=== PATIENT | female | born 1975 | race Caucasian/White ===

== ENCOUNTER 2016-07-22 09:12 | Emergency (ER) | payer BC ==
[~2016-07-22] VITALS: Ht 160 cm; Wt 84.1 kg
[~2016-07-22 09:12] MED LIST: ADVIL,NUPRIN,M200 MG PO; FLEXERIL5 MG PO; HYDROCODON-ACE1 EAC7 PO; LEVAQUIN750 MG PO; NOHOMEMEDS; ROBITUSSIN DM118 ML PO; TRAMADOL HCL50 MG PO
[2016-07-22] MEDS ORDERED: CLINDAMYCIN HC150 MG PO (10:03)
[2016-07-22] MEDS ORDERED: NAPROXEN500 MG PO (10:03)
[2016-07-22 10:12] VITALS: BP 119/78
== END 2016-07-22 10:50 | disposition home or self-care (01) ==
LOC: EME 09:12
PROC: 0C95XZZ Drainage of Upper Gingiva, External Approach (ICD-10-PCS; principal; 2016-07-22)
DX: K04.7 Periapical abscess without sinus (principal); F17.200 Nicotine dependence, unspecified, uncomplicated; Z88.0 Allergy status to penicillin
CPT/HCPCS: 99281; 99283